=== PATIENT | male | born 1980 | race Hispanic/Latino ===

== ENCOUNTER → 2023-08-13 | Outpatient (CLI) | payer OTHER | END | disposition home or self-care (01) | LOC: RAH 09:03 | PROVIDERS: ATTEND Internal Medicine Gastroenterology | DX: K86.2 Cyst of pancreas (principal); K86.89 Other specified diseases of pancreas; Z90.49 Acquired absence of other specified parts of digestive tract | CPT/HCPCS: 74181; S8037 ==

== ENCOUNTER → 2024-01-31 | Outpatient (CLI) | payer OTHER | END | disposition home or self-care (01) | LOC: SHCH 13:12 | PROVIDERS: ATTEND Internal Medicine | DX: R94.31 Abnormal electrocardiogram [ECG] [EKG] (principal); I44.7 Left bundle-branch block, unspecified | CPT/HCPCS: 93306 ==

== ENCOUNTER → 2024-02-14 | Outpatient (CLI) | payer OTHER ==
[2024-02-14] MEDS: REGADENOSON 0.4 MG/5 ML PF SYG IVP ONE (15:17)
== END | disposition home or self-care (01) ==
LOC: SHCH 07:52
PROVIDERS: ATTEND Internal Medicine
DX: R94.31 Abnormal electrocardiogram [ECG] [EKG] (principal); I44.7 Left bundle-branch block, unspecified
CPT/HCPCS: 78452; 93017; J2785; A9500 ×2

== ENCOUNTER 2024-05-25 07:46 | Day surgery (SDC) | payer OTHER ==
[~2024-05-25] VITALS: Ht 180.3 cm; Wt 93.0 kg
[2024-05-25] VITALS (12 sets, daily range): BP systolic 112–132; BP diastolic 67–82; PULSE 60–70; RESP 14–17; TEMP 97.1–97.4
[~2024-05-25 07:46] MED LIST: ALIR150P6 SQ; ATOR40TA69 PO; BUSP10TA3 PO; CHOL5POW MC; EMPA25TA PO; FERR-72 PO; GEMF600T89 PO; LOSA50TA64 PO; OMEP40CA21 PO; SERT-440 PO; SODI10PO2 PO; SODI650T PO; SUCR1TAB2 PO; TADA5TAB5 PO; TIRZ15PE SQ
[2024-05-25] MEDS: 0.9%NACL 1000ML 1,000 ML IV ONE (08:19)
[2024-05-25] MEDS ORDERED: LIDOCAINE HCL 1% 20 ML VIAL ONE (09:41)
[2024-05-25] MEDS ORDERED: proPOFol 10 MG/ML 20ML VIAL IV ONE ×2 (09:41→09:44)
--- NOTE | 2024-05-25 10:53 | NUR ---
Full and complete discharge instructions given to Patient and Family both verbally and in writing. Explained GI EUS procedure precautions and follow up. All questions answered. PIV removed with catheter tip intact. Home with Family W/C to POV.
== END 2024-05-25 10:55 | disposition home or self-care (01) ==
LOC: DAH 07:46 → ENDO 07:46
PROVIDERS: ATTEND Internal Medicine Gastroenterology
DX: K86.2 Cyst of pancreas (principal); R93.3 Abnormal findings on diagnostic imaging of other parts of digestive tract; I10 Essential (primary) hypertension; E11.9 Type 2 diabetes mellitus without complications; K21.9 Gastro-esophageal reflux disease without esophagitis; R19.7 Diarrhea, unspecified; R13.12 Dysphagia, oropharyngeal phase; E78.00 Pure hypercholesterolemia, unspecified; F41.9 Anxiety disorder, unspecified; F32.A Depression, unspecified; K21.00 Gastro-esophageal reflux disease with esophagitis, without bleeding; Z79.4 Long term (current) use of insulin; Z79.84 Long term (current) use of oral hypoglycemic drugs; Z90.49 Acquired absence of other specified parts of digestive tract; Z79.899 Other long term (current) drug therapy
CPT/HCPCS: 43259; 82948; J7030 ×2; J2704 ×2; A4620; A4215; A4223; A7002; A4222; A4221; A4663; A4606; J3490

== ENCOUNTER → 2024-12-01 | Outpatient (CLI) | payer OTHER ==
[2024-12-01 10:30] LABS: IMMATURE GRANULOCYTE ABSOLUTE 0.01 K/uL (0-1); NUCLEATED RED BLOOD CELLS 0.0 % (0.0-0.19); PLATELET COUNT (AUTO) 170 K/uL (130-400); RED BLOOD CELL COUNT(AUTO) 3.50 MIL/uL (4.50-6.20); RED CELL DISTRIBUTION WIDTH 16.2 % (11.0-15.5); WHITE BLOOD COUNT (AUTO) 3.4 K/uL (4.8-10.8)
== END | disposition home or self-care (01) ==
LOC: LAB 09:39
PROVIDERS: ATTEND Internal Medicine Gastroenterology
DX: R19.7 Diarrhea, unspecified (principal)
CPT/HCPCS: 84439; 84443; 85025